=== PATIENT | female | born 2005 | race Two or more races ===

== ENCOUNTER → 2025-07-08 | Outpatient (CLI) | payer OTHER ==
[2025-07-08 18:34] LABS: PLATELET COUNT, AUTOMATED 220 10^3/uL (150-450)
[2025-07-08 18:52] LABS: Trichomonas vaginalis (AMP) NOT DETECTED (NEGATIVE)
[2025-07-08 19:15] LABS: GC DNA AMPLIFICATION NEGATIVE (NEGATIVE)
[2025-07-08 20:03] LABS: HIV 1&2 SCREEN NEGATIVE (NEGATIVE)
[2025-07-08 20:12] LABS: HEPATITIS C VIRUS ABY INDEX < 0.02 INDEX (<0.8)
== END ==
LOC: M PLALAB 15:53
PROVIDERS: ATTEND Student in an Organized Health Care Education/Training Program
DX: Z34.81 Encounter for supervision of other normal pregnancy, first trimester (principal)

== ENCOUNTER → 2025-08-05 | Outpatient (CLI) | payer OTHER | LOC: M PLALAB 13:59 | PROVIDERS: ATTEND Student in an Organized Health Care Education/Training Program | DX: Z34.80 Encounter for supervision of other normal pregnancy, unspecified trimester (principal) ==